=== PATIENT | female | born 1945 | race American Indian/Alaskan Native ===

== ENCOUNTER 2017-02-20 06:34 | Day surgery (SDC) | payer MEDICARE, OTHER ==
[2017-02-20 07:00] VITALS: BMI 41.9
--- NOTE | 2017-02-20 08:36 | CP.SDSHP ---
Same Day Surgery H & P - History Proposed Procedure: Screening colonoscopy Pre-Op Diagnosis: Screening for colon cancer - Previous Medical/Surgical History Cardiac: Hypertension Endocrine/Metabolic: Diabetes Previous Surgical History: None - Allergies Allergies: Allergies No Known Allergies Allergy (Unverified 02/26/13 08:58) - Current Medications Current Medications: See reconciliation sheet - Physical Exam General Appearance: WD WN female in NAD Vital Signs: Vital Signs 02/20/17 07:06 Temperature 97.6 F Pulse Rate 90 Respiratory 17 Rate Blood Pressure 163/98 H O2 Sat by Pulse 99 Oximetry Mental Status: Alert & Oriented x3 Neuro: WNL Heart: WNL Lungs: WNL GI: WNL - {Optional Preform as Required} Abdomen: WNL - Impression Impression: Screening for colon cancer Pt. Evaluated Today:Candidate for Anesthesia & Procedure: Yes - Date & Time Date: 02/20/17 Time: 08:36 Short Stay Discharge - Short Stay Discharge Admitting Diagnosis/Reason for Visit: SCREENING Disposition: HOME/ ROUTINE
[2017-02-20] MEDS ORDERED: Propofol 10 mg/ml Inj (20 ML) ONE (08:41)
[2017-02-20 09:32] VITALS: TEMP 96.9
[2017-02-20 09:40] VITALS: O2SAT 100
[2017-02-20 10:47] VITALS: BP 136/82; PULSE 85; RESP 12
== END 2017-02-20 10:30 | disposition home or self-care (01) ==
LOC: C.ENDO 06:34
PROVIDERS: ATTEND Internal Medicine Gastroenterology
DX: D12.6 Benign neoplasm of colon, unspecified (principal); I10 Essential (primary) hypertension; K64.8 Other hemorrhoids
CPT/HCPCS: 45388; 82948; 88305; J2704; J7040

== ENCOUNTER 2018-09-08 14:32 | Outpatient (CLI) | payer OTHER | END 2018-09-08 14:33 | disposition home or self-care (01) | LOC: C.LAB 14:32 | DX: I10 Essential (primary) hypertension (principal); E78.2 Mixed hyperlipidemia; Z68.41 Body mass index [BMI] 40.0-44.9, adult; R63.5 Abnormal weight gain ==